=== PATIENT | male | born 1995 | race Asian ===

== ENCOUNTER 2019-01-14 09:11 | Day surgery (SDC) | payer BC ==
[2019-01-13 12:15] VITALS: BMI 23.0
[2019-01-14] MEDS ORDERED: Oxymetazoline HCl 0.05% ( 15 ML ) ONE ×3 (10:05→12:49)
[2019-01-14] MEDS ORDERED: Ondansetron PF 4 MG/2 ML Vial ONE (11:21)
[2019-01-14] MEDS ORDERED: Lidocaine 1% PF 5 ML VIAL ONE (11:21)
[2019-01-14] MEDS ORDERED: PROPOFOL 200 MG/20 ML VIAL ONE (11:21)
[2019-01-14] MEDS ORDERED: Dexamethasone 20 MG/5 ML VIAL ONE (11:21)
[2019-01-14] MEDS ORDERED: Fentanyl 100 MCG/2 ML VIAL ONE (12:00)
[2019-01-14] MEDS ORDERED: PROPOFOL 20 ML ONE (12:20)
[2019-01-14] MEDS ORDERED: Lidocaine 1% w/Epinephrine 1:100K 20 ML VIAL ONE (12:26)
--- NOTE | 2019-01-14 13:13 | OP ---
DATE OF PROCEDURE: 01/14/2019 PREOPERATIVE DIAGNOSES: 1. Closed nasal fracture. 2. Acquired nasal deformity. POSTOPERATIVE DIAGNOSES: 1. Closed nasal fracture. 2. Acquired nasal deformity. PROCEDURE PERFORMED: Closed reduction of bilateral nasal fracture. ESTIMATED BLOOD LOSS: 5 mL. COMPLICATIONS: None. ANESTHESIA: LMA. DESCRIPTION OF PROCEDURE: The patient was taken to operating room. LMA anesthesia was obtained by the anesthesia staff. The large nasal bone elevator was then inserted into the nasal cavity, and the nasal bones were manually manipulated and remobilized. There were multiple fractures on the left nasal bone and two noted on the right. These nasal bone segments were then reapproximated to their normal anatomic position, and an external nasal Aris splint was applied. The patient tolerated the procedure well. Job ID: [id number]
== END 2019-01-14 14:45 | disposition home or self-care (01) ==
LOC: SDC 09:11
PROVIDERS: ATTEND Otolaryngology Plastic Surgery within the Head & Neck
PROC: 0NSBXZZ Reposition Nasal Bone, External Approach (ICD-10-PCS; principal; 2019-01-14)
DX: S02.2XXA Fracture of nasal bones, initial encounter for closed fracture (principal); M95.0 Acquired deformity of nose; J34.89 Other specified disorders of nose and nasal sinuses; V19.9XXA Pedal cyclist (driver) (passenger) injured in unspecified traffic accident, initial encounter
CPT/HCPCS: J1100; J2001; J2405; J2704; J3010